=== PATIENT | male | born 1950 | race Caucasian/White ===

== ENCOUNTER 2019-11-11 13:56 | Inpatient (IN) | payer MEDICARE, OTHER ==
[~2019-11-11] VITALS: Ht 170.2 cm; Wt 71.7 kg
--- NOTE | 2019-11-11 14:09 | NUR ---
JACIEL CHENG FROM [facility] FOR INCREASING CONFUSION. HERE FOR PSYCH EVAL PRIOR TO PSYCH ADMIT. TO ER BED 11, HOOKED TO BP CUFF AND POX, VSS, CHANGED TO HOSP GOWN, WARM BLANKET PROVIDED, PATIENT AAO x 1, BREATHING EVEN AND UNLABORED, DR DUBON AT BEDSIDE
[2019-11-11] MEDS ORDERED: VALP250S4 PO (14:54)
[2019-11-11] MEDS ORDERED: VALP250S3 PO (14:54)
[2019-11-11] MEDS ORDERED: ATOR20TA PO (14:54)
[2019-11-11] MEDS ORDERED: MIRT15TA PO (14:54)
[2019-11-11] MEDS ORDERED: TEMA15CA PO (14:54)
[2019-11-11] MEDS ORDERED: TRAM50TA PO (14:54)
[2019-11-11] MEDS ORDERED: ALLO100T PO (14:54)
[2019-11-11] MEDS ORDERED: QUET300T2 PO (14:54)
[2019-11-11 15:01] LABS: CARBON DIOXIDE 27 mmol/L (21-32); CHLORIDE 105 mmol/L (98-107); CREATININE 0.8 mg/dL (0.6-1.3); GLUCOSE 73 mg/dL (74-106); POTASSIUM 3.5 mmol/L (3.5-5.1); SODIUM SERUM 140 mmol/L (136-145); UREA NITROGEN, BLOOD 7 mg/dL (7-18)
--- NOTE | 2019-11-11 15:09 | NUR ---
URINE SAMPLE COLLECTED AND SENT TO LAB
[2019-11-11 15:13] LABS: BASOPHILS % (AUTO) 0.4 % (0.0-2.0); EOSINOPHILS % (AUTO) 3.1 % (0.0-6.0); HEMATOCRIT 39 % (39-51); HEMOGLOBIN 12.8 g/dL (13.5-17.5); LYMPHOCYTES % (AUTO) 39.9 % (20.0-44.0); MEAN CORPUSCULAR HGB CONC 33 g/dl (31.0-36.0); MEAN CORPUSCULAR VOLUME 95 fL (80-96); MONOCYTES # (AUTO) 0.5 /CMM (0.1-1.30); MONOCYTES % (AUTO) 10.3 % (2.0-12.0); NEUTROPHILS # (AUTO) 2.4 /CMM (1.8-8.9); NEUTROPHILS % (AUTO) 46.3 % (43.0-81.0); PLATELET COUNT (AUTO) 122 /CMM (150-450); RED BLOOD CELL COUNT(AUTO) 4.07 MIL/uL (4.5-6.0); WHITE BLOOD COUNT (AUTO) 5.1 K/uL (4.3-11.0)
[2019-11-11 15:15] LABS: ALANINE AMINOTRANSFERASE 10 U/L (12-78); ALBUMIN 2.6 g/dL (3.4-5.0); ALCOHOL, BLOOD < 3 mg/dL (0-0); ALKALINE PHOSPHATASE 68 U/L (46-116); ASPARTATE AMINOTRANSFERASE 21 U/L (15-37); BILIRUBIN,DIRECT 0.1 mg/dL (0.0-0.2); BILIRUBIN,TOTAL 0.3 mg/dL (0.2-1.0); TOTAL PROTEIN, SERUM 7.1 g/dL (6.4-8.2)
[2019-11-11 15:18] LABS: ACETAMINOPHEN < 2 ug/ml (10-30); SALICYLATE < 2.8 mg/dL (2.8-20.0)
--- NOTE | 2019-11-11 15:18 | NUR ---
WEST VIRUS SWAB DONE AND SENT TO LAB
[2019-11-11 15:41] LABS: APPEARANCE,URINE HAZY (CLEAR); BILIRUBIN,URINE SMALL (NEGATIVE); BLOOD, URINE Trace-intact Ery/uL (NEGATIVE); COLOR,URINE Yellow (YELLOW); KETONES,URINE Negative (NEGATIVE); LEUKOCYTE ESTERASE ,URINE Negative (NEGATIVE); NITRITE, URINE Negative (NEGATIVE); PROTEIN,URINE Negative (NEGATIVE); UGLUCOSE Negative (NEGATIVE)
--- NOTE | 2019-11-11 15:58 | NUR ---
CALLED ART [phone]
[2019-11-11 16:03] LABS: BACTERIA,URINE Few /HPF (None Seen); CALCIUM OXALATE CRYSTALS,UR Few /HPF (None Seen); SQUAMOUS EPITHELIAL CELL,UR Few /HPF (None Seen); WBC,URINE 0-2 /HPF (0-3)
--- NOTE | 2019-11-11 16:15 | NUR ---
COVID RESULT: NEGATIVE
--- NOTE | 2019-11-11 17:40 | NUR ---
[facility] WANTS DR NANCE CALLED IF HE WANTS COVID PCR TEST DONE INSPITE OF A NEGATIVE RAPID COVID TODAY SINCE HE TESTED "POSITIVE 2 1/2 MONTHS AGO".
--- NOTE | 2019-11-11 17:43 | NUR ---
GOT BED 216
--- NOTE | 2019-11-11 17:44 | NUR ---
DR NANCE CALLED AND SAID THAT HE DOES NOT NEED THE COVID PCR SINCE HE IS ALREADY NEGATIVE WITH THE TEST DONE TODAY.
--- NOTE | 2019-11-11 17:51 | NUR ---
REPORT GIVEN TO ERIC JULES OF GPS
--- NOTE | 2019-11-11 18:15 | NUR ---
GPS/RN-NOTES RECEIVED 69 Y.O MALE PATIENT FROM [facility] ER.PATIENT ON 5150 HOLD FOR GD ADULT. PATIENT AWAKE,ALERT X1 WITH CONFUSION. PATIENT WAS CONTRABAND.CHARGE NURSE MADE DR. JIMENES OF THE ADMISSION. WILL ENDORSE TO INCOMING NURSE FOR ADMISSION PROCESS AND CONTINUITY OF CARE.
[2019-11-11] MEDS ORDERED: MAG HYDROX/AL HYDROX/SIMETH 30 ML UDC PO PRN (18:30)
[2019-11-11] MEDS ORDERED: LORAZEPAM 0.5 MG TABLET PO PRN (18:30)
[2019-11-11] MEDS ORDERED: MAGNESIUM HYDROXIDE 30 ML UDC PO PRN (18:30)
[2019-11-11] MEDS ORDERED: TEMAZEPAM 7.5 MG CAPSULE PO PRN (18:30)
[2019-11-11] MEDS ORDERED: BLOOD SUGAR DIAGNOSTIC 1 EACH STRIP IN ONE (18:30)
--- NOTE | 2019-11-11 19:30 | NUR ---
GPS HEADING MAKER NOTE RECEIVED PT FROM ER COMING FROM SNF. PATIENT ARRIVED ON THE UNIT AT 1700 VIA GURNEY. PATIENT ADMITTED ON A 5150 FOR GD. PER REPORT FACILITY STATED PT WAS FOUND BEING DISRUPTIVE, HAD INCREASED CONFUSION AND INABILITY TO CARE FOR HIMSELF. PT HAS MEDICAL HISTORY OF OSTEOARTHRITIS, ANEMIA, THROMBOSIS R. FEMORAL, MAJOR DEPRESSIVE, ANXIETY AND BIPOLAR. PER HOLD PATIENT BECAME SLIGHTLY AGITATED AND REFUSED TO SIGN PAPERWORK. PATIENT WAS ADVISED OF HIS HOLD. PATIENT STATED "I DON'T KNOW WHY I AM HERE, I SHOULD NOT BE HERE" ONCE REDIRECTED PT BECAME CALM AND COOPERATIVE. PT IS A/O X2-3, WITH EPISODES OF CONFUSION, BLUNT AND FLAT AFFECT, GUARDED AND QUIET. DENIES AUDITORY/VISUAL HALLUCINATION AT THIS TIME, DENIES SI/HI. PT IS IMMOBILE, NEEDS MAXIMUM ASSISTANCE AND HAS SLIGHT MUSCLE RIGIDITY. PATIENT ALLOWED US TO TAKE PICTURES AND COMPLETE SKIN ASSESSMENT. PT HAS PITTING EDEMA AND +4 BILATERALLY IN ANKLES, SLIGHT FUNGUS ON TOE, ABRASION ON LOWER LEG, REDDENED SACRAL AREA AND DRIED SCAB ON LEFT ARM, PICTURES WERE TAKEN AND PUT IN CHART, WOUND CONSULT INITIATED. PATIENT DENIES PAIN AND NO ACUTE DISTRESS IS NOTED. MRSA COMPLETE, VITAL SIGNS WNL. PT ORIENTED TO ROOM AND FLOOR, ALL QUESTIONS ANSWERED. PATIENT BED IS LOCKED AND IN LOWEST POSITION, SIDE RAILS ARE UP X2 FOR SAFETY, TS RIGHT BOOKLET WAS GIVEN WILL CONTINUE TO MONITOR Q15 MIN FOR SAFETY AND BEHAVIOR.
[2019-11-11 20:54] VITALS: BP 127/71
[2019-11-11 21:22] LABS: CHOLESTEROL 119 mg/dL (<200); HDL CHOLESTEROL 41 mg/dL (40-60); TRIGLYCERIDES 66 mg/dL (30-150)
[2019-11-11 21:23] LABS: LDL 63 mg/dL (0-99)
[2019-11-11] MEDS: ATORVASTATIN 10 MG TABLET PO SCH (21:24)
[2019-11-11 21:53] VITALS: BP 127/71
[2019-11-11] MEDS ORDERED: VALPROIC ACID 250 MG/5 ML UDC PO SCH (22:00)
[2019-11-12 08:00] VITALS: BP 140/90
[2019-11-12 08:09] LABS: ALBUMIN 2.6 g/dL (3.4-5.0); BILIRUBIN,TOTAL 0.4 mg/dL (0.2-1.0); CALCIUM, SERUM 9.3 mg/dL (8.5-10.1); CREATININE 0.7 mg/dL (0.6-1.3); POTASSIUM 4.9 mmol/L (3.5-5.1); TOTAL PROTEIN, SERUM 6.7 g/dL (6.4-8.2)
[2019-11-12] MEDS: ALLOPURINOL 100 MG TABLET PO SCH (08:30)
[2019-11-12] MEDS: TRAMADOL HCL 50 MG TABLET PO SCH ×2 (08:31→16:21)
[2019-11-12] MEDS: NICOTINE PATCH (21MG) 21 MG PATCH.TD24 TD SCH (08:31)
[2019-11-12] MEDS ORDERED: VALPROIC ACID 250 MG/5 ML UDC PO SCH (09:00)
--- NOTE | 2019-11-12 09:44 | NUR ---
Social Work Initial Discharge Plan: Patient currently resides at [facility] [address] [place] [address]; ([phone]). Per patient's daughter EDWIN Soler ([phone]) stated that she would want her father back to [facility]. Per daughter, she stated that [facility] has a Memory Care and if they have bed available there then she would want her father to transition there. This remote mortgage underwriter spoke with Neo Miller ([phone]) who stated that patient is welcomed back upon discharge. family service worker will work with the MD, treatment team, and family to help coordinate proper discharge for patient.
--- NOTE | 2019-11-12 09:44 | NUR ---
Social Work Family Contact: ticket worker contacted patient's daughter Karlene ([phone]) to gather collateral. Per Karlene, she stated that she is the DPOA of patient and will send this sheet writer documentations. Per Karlene, she expressed that patient has Parkinson and high ammonia levels. This sheet writer discussed pt's discharge plan and treatment plan.
--- NOTE | 2019-11-12 12:30 | NUR ---
WOUND CARE CONSULT: PT PRESENTS WITH SACRAL DIMPLE AND NOTED TO BE INCONTINENT OF URINE. RECOMMENDATIONS MADE FOR SKIN PROTECTION. DISCUSSED WITH NURSING STAFF. PT STATES IS BEDBOUND. WILL SEE PRN. M D IN AGREEMENT WITH PLAN OF CARE.
[2019-11-12] MEDS: QUETIAPINE FUMARATE 100 MG TABLET PO SCH ×2 (12:46→16:21)
[2019-11-12] MEDS: DIVALPROEX SODIUM 250 MG TABLET.DR PO SCH ×2 (12:46→16:22)
--- NOTE | 2019-11-12 15:26 | NUR ---
Group Note: grain mill worker invited pt to participate in group. Pt refused and wanted to stay in his room.
[2019-11-12 16:00] VITALS: BP 106/77
[2019-11-12] MEDS: Z GUARD REMEDY 2 OZ OINT TP SCH (16:21)
[2019-11-12 19:50] VITALS: BP 151/80
[2019-11-12 19:57] VITALS: BP 151/80
[2019-11-12] MEDS: ATORVASTATIN 10 MG TABLET PO SCH (21:14)
[2019-11-12] MEDS: MIRTAZAPINE 15 MG TABLET PO SCH (21:14)
--- NOTE | 2019-11-12 21:20 | NUR ---
GPS RN NOTE INFORMED THE PATIENT THAT HE NEEDS TO BE TURNED & REPOSITIONED AT THIS TIME BUT PATIENT REFUSED TO BE TURNED, STATED," I WAS TURNED RIGHT AFTER DINNER & GOT CHANGED TOO, I DO NOT WANT TO TURN OR GET CHANGED NOW." DESPITE OF RISKS & BENEFITS EXPLANATIONS, PT. CONTINUED TO REFUSE TO TURN/REPOSITION & GET HIS DIAPER CHANGED. WILL TRY AGAIN LATER.
[2019-11-12] MEDS: ACETAMINOPHEN 325 MG TABLET PO PRN (21:26)
--- NOTE | 2019-11-12 21:26 | NUR ---
PRN TYLENOL GIVEN PATIENT C/O LEFT FOOT & RIGHT LEG PAIN 06/28 & REQUESTED TO TAKE PAIN MEDICINE, PRN TYLENOL 650 MG PO GIVEN. WILL MONITOR CLOSELY FOR ANY CHANGES.
--- NOTE | 2019-11-13 00:15 | NUR ---
GPS RN NOTE PATIENT WAS CHANGED INTO NEW DIAPER, SKIN CREAM APPLIED. TURNED & REPOSITIONED PER PROTOCOL. WILL CONTINUE TO MONITOR.
[2019-11-13] MEDS: Z GUARD REMEDY 2 OZ OINT TP PRN ×2 (02:56→23:44)
[2019-11-13 08:00] VITALS: BP 104/76
[2019-11-13] MEDS: NICOTINE PATCH (21MG) 21 MG PATCH.TD24 TD SCH (08:52)
[2019-11-13] MEDS: TRAMADOL HCL 50 MG TABLET PO SCH ×2 (08:54→17:23)
[2019-11-13] MEDS: DIVALPROEX SODIUM 250 MG TABLET.DR PO SCH ×3 (08:55→13:00)
[2019-11-13] MEDS: QUETIAPINE FUMARATE 100 MG TABLET PO SCH ×3 (08:55→17:23)
[2019-11-13] MEDS: ALLOPURINOL 100 MG TABLET PO SCH (08:55)
[2019-11-13] MEDS: Z GUARD REMEDY 2 OZ OINT TP SCH (09:05)
[2019-11-13] MEDS: ACETAMINOPHEN 325 MG TABLET PO PRN (12:48)
[2019-11-13 16:00] VITALS: BP 98/65
[2019-11-13] MEDS: DIVALPROEX SODIUM 500 MG TABLET.DR PO SCH (17:23)
--- NOTE | 2019-11-13 19:30 | NUR ---
GPS RN OPENING NOTE RECEIVED PATIENT RESTING IN BED RESTING COMFORTABLY. AWAKE, A & O X2-3, CONFUSED & FORGETFUL AT TIMES. CALM BUT DEPRESSED, GUARDED, QUIET, FLAT AFFECT, NO ACUTE DISTRESS NOTED AT THIS TIME. COOPERATIVE WITH CARE, NEEDS 1-2 PERSON ASSISTANCE WITH ALL ADL'S. DENIES SI/HI/AVH AT THIS TIME. INCONTINENT, NON AMBULATORY, SAFETY PRECAUTIONS IMPLEMENTED. BED IN LOW LOCKED POSITION. BED ALARM ON. WILL CONTINUE TO MONITOR Q 15 MIN. FOR SAFETY, MOOD AND BEHAVIOR.
[2019-11-13 20:00] VITALS: BP 119/69
[2019-11-13 20:31] VITALS: BP 119/69
[2019-11-13] MEDS ORDERED: ATORVASTATIN 10 MG TABLET ONE (21:50)
[2019-11-13] MEDS: MIRTAZAPINE 15 MG TABLET PO SCH (21:51)
[2019-11-13] MEDS: ATORVASTATIN 10 MG TABLET PO SCH (21:52)
[2019-11-14 08:00] VITALS: BP 118/69
[2019-11-14] MEDS: DIVALPROEX SODIUM 250 MG TABLET.DR PO SCH ×2 (08:53→13:02)
[2019-11-14] MEDS: QUETIAPINE FUMARATE 100 MG TABLET PO SCH ×4 (09:23→21:25)
[2019-11-14] MEDS: ALLOPURINOL 100 MG TABLET PO SCH (09:23)
[2019-11-14] MEDS: NICOTINE PATCH (21MG) 21 MG PATCH.TD24 TD SCH (09:23)
[2019-11-14] MEDS: TRAMADOL HCL 50 MG TABLET PO SCH ×2 (09:24→17:23)
[2019-11-14] MEDS: Z GUARD REMEDY 2 OZ OINT TP SCH (09:40)
--- NOTE | 2019-11-14 12:00 | NUR ---
RN NOTE: DR. TEAGUE NOTIFIED OF PT BEING NON-AMBULATORY WITH H/O DVT. NO NEW ORDERS
[2019-11-14 16:00] VITALS: BP 114/56
[2019-11-14] MEDS: DIVALPROEX SODIUM 500 MG TABLET.DR PO SCH (17:23)
[2019-11-14 20:00] VITALS: BP 103/73
[2019-11-14 20:12] VITALS: BP 103/73
--- NOTE | 2019-11-14 21:30 | NUR ---
REFUSED SKIN ASSESSMENT PATIENT ALLOWED TO ASSESS HIS UPPER/LOWER EXTREMITIES, PHOTOS TAKEN BUT REFUSED SKIN ASSESSMENT OF ABDOMEN, CHEST, BACK, SACRAL & PERINEAL AREA, WHEN EXPLAINED & ENCOURAGED, PATIENT GOT AGITATED & ANXIOUS, ASKED THE NURSE TO LEAVE HIM ALONE. WILL TRY AGAIN WHEN PATIENT AGREES.
[2019-11-14] MEDS: ATORVASTATIN 10 MG TABLET PO SCH (22:04)
[2019-11-15] MEDS: Z GUARD REMEDY 2 OZ OINT TP PRN (03:51)
--- NOTE | 2019-11-15 06:20 | NUR ---
GPS RN NOTE PATIENT REFUSED AM LABS, STATED," I WANT TO SEE THE DOCTOR FIRST." DESPITE OF EXPLANATIONS, PT. CONTINUED TO REFUSE.
[2019-11-15 08:00] VITALS: BP 141/89
[2019-11-15] MEDS: NICOTINE PATCH (21MG) 21 MG PATCH.TD24 TD SCH (08:20)
[2019-11-15] MEDS: TRAMADOL HCL 50 MG TABLET PO SCH ×2 (08:20→17:20)
[2019-11-15] MEDS: QUETIAPINE FUMARATE 100 MG TABLET PO SCH ×4 (08:21→21:48)
[2019-11-15] MEDS: DIVALPROEX SODIUM 250 MG TABLET.DR PO SCH ×2 (08:21→12:47)
[2019-11-15] MEDS: ALLOPURINOL 100 MG TABLET PO SCH (08:21)
[2019-11-15] MEDS: Z GUARD REMEDY 2 OZ OINT TP SCH (09:04)
--- NOTE | 2019-11-15 11:14 | NUR ---
RN NOTE: ANXIETY PT C/O INCREASING ANXIETY AFTER PT THERAPY. MEDICATED WITH ATIVAN 0.5 MG PO PRN
--- NOTE | 2019-11-15 13:36 | NUR ---
Social Work Substance Abuse Intervention: Patient was provided with a brief substance abuse intervention and referred to the following substance abuse programs: [facility] Substance Abuse Self-helpline ([phone]); [facility] [address] [place] [address] ([phone]); [facility] [address] [place] [address] ([phone]); [facility] ([phone]); [facility] ([phone]); [facility] ([phone]); [facility] ([phone]).
[2019-11-15 15:04] LABS: BASOPHILS % (AUTO) 0.6 % (0.0-2.0); EOSINOPHILS % (AUTO) 2.3 % (0.0-6.0); HEMATOCRIT 40 % (39-51); LYMPHOCYTES # (AUTO) 2.1 /CMM (0.8-4.8); LYMPHOCYTES % (AUTO) 35.2 % (20.0-44.0); MEAN CORPUSCULAR HGB CONC 33 g/dl (31.0-36.0); MEAN CORPUSCULAR VOLUME 96 fL (80-96); MONOCYTES # (AUTO) 0.8 /CMM (0.1-1.30); MONOCYTES % (AUTO) 12.5 % (2.0-12.0); NEUTROPHILS % (AUTO) 49.4 % (43.0-81.0); PLATELET COUNT (AUTO) 147 /CMM (150-450); RED BLOOD CELL COUNT(AUTO) 4.13 MIL/uL (4.5-6.0); WHITE BLOOD COUNT (AUTO) 6.1 K/uL (4.3-11.0)
[2019-11-15 15:18] LABS: ALBUMIN 2.3 g/dL (3.4-5.0); BILIRUBIN,TOTAL 0.3 mg/dL (0.2-1.0); CALCIUM, SERUM 8.8 mg/dL (8.5-10.1); CREATININE 0.9 mg/dL (0.6-1.3); POTASSIUM 4.1 mmol/L (3.5-5.1); TOTAL PROTEIN, SERUM 6.6 g/dL (6.4-8.2)
[2019-11-15 16:00] VITALS: BP 106/81
[2019-11-15] MEDS: DIVALPROEX SODIUM 500 MG TABLET.DR PO SCH (17:19)
[2019-11-15 20:17] VITALS: BP 128/61
[2019-11-15] MEDS: ATORVASTATIN 10 MG TABLET PO SCH (21:48)
[2019-11-16] MEDS: ACETAMINOPHEN 325 MG TABLET PO PRN (06:06)
--- NOTE | 2019-11-16 06:09 | NUR ---
GPS RN NOTES: PAIN PT C/O OF LEG PAIN. OFFERED TYLENOL 650 MG PO PRN ORDERED. PT AGREED AND TOLERATED MEDICATION WELL. CONTINUE TO MONITOR.
[2019-11-16 07:46] LABS: BASOPHILS % (AUTO) 0.4 % (0.0-2.0); EOSINOPHILS % (AUTO) 2.6 % (0.0-6.0); HEMATOCRIT 40 % (39-51); HEMOGLOBIN 13.3 g/dL (13.5-17.5); LYMPHOCYTES # (AUTO) 1.9 /CMM (0.8-4.8); LYMPHOCYTES % (AUTO) 36.4 % (20.0-44.0); MEAN CORPUSCULAR HGB CONC 33 g/dl (31.0-36.0); MEAN CORPUSCULAR VOLUME 95 fL (80-96); MONOCYTES # (AUTO) 0.6 /CMM (0.1-1.30); MONOCYTES % (AUTO) 12.3 % (2.0-12.0); NEUTROPHILS # (AUTO) 2.5 /CMM (1.8-8.9); NEUTROPHILS % (AUTO) 48.3 % (43.0-81.0); PLATELET COUNT (AUTO) 175 /CMM (150-450); RED BLOOD CELL COUNT(AUTO) 4.27 MIL/uL (4.5-6.0); WHITE BLOOD COUNT (AUTO) 5.1 K/uL (4.3-11.0)
[2019-11-16 07:48] LABS: ALBUMIN 2.4 g/dL (3.4-5.0); BILIRUBIN,TOTAL 0.4 mg/dL (0.2-1.0); CALCIUM, SERUM 8.9 mg/dL (8.5-10.1); CREATININE 0.7 mg/dL (0.6-1.3); POTASSIUM 3.8 mmol/L (3.5-5.1); TOTAL PROTEIN, SERUM 6.9 g/dL (6.4-8.2)
[2019-11-16 08:00] VITALS: BP 97/70
[2019-11-16] MEDS: ALLOPURINOL 100 MG TABLET PO SCH (08:29)
[2019-11-16] MEDS: QUETIAPINE FUMARATE 100 MG TABLET PO SCH ×4 (08:29→21:32)
[2019-11-16] MEDS: NICOTINE PATCH (21MG) 21 MG PATCH.TD24 TD SCH (08:29)
[2019-11-16] MEDS: TRAMADOL HCL 50 MG TABLET PO SCH ×2 (08:29→17:26)
[2019-11-16] MEDS: DIVALPROEX SODIUM 250 MG TABLET.DR PO SCH ×2 (08:29→12:23)
[2019-11-16] MEDS: Z GUARD REMEDY 2 OZ OINT TP SCH (09:18)
--- NOTE | 2019-11-16 14:30 | NUR ---
RN NOTE: UNWITNESSED FALL PT FOUND BY RENO FERMIN. PT FOUND ON THE FLOOR AFTER ATTEMPTING TO GET FROM WHEELCHAIR TO THE BED UNASSISTED. PT FOUND LAYING ON RIGHT HIP. NO TRAUMA TO THE HEAD NOTED OR REPORTED. PT ASSISTED BACK TO BED. SIGHT ASSESSED, SKIN INTACT. PT DENIES PAIN AT SIGHT. PT REPORTS H/O RIGHT HIP REPAIR IN 2004. DR. JIMENES AND DR. ARORA NOTIFIED. ORDER FOR MULI-VIEW RIGHT HIP X-RAY. PT'S DAUGHTER, JOSE ROBERTO HOPSON, NOTIFIED. REPORTS H/O MULTIPLE SIMILAR EVENTS AT PREVIOUS PLACE OF TREATMENT WITHIN THE LAST 30 DAYS. VSS: 101/63, 107, 18 AND 95%. INCIDENT REPORT FILED. PT MOVED TO ROOM CLOSER TO THE NURSES STATION. CALL EDWARDS WITHIN REACH. WILL CONT TO MONITOR PT FOR SAFETY, BEHAVIOR AND PAIN. US NOTIFIED OF ORDER.
--- NOTE | 2019-11-16 15:30 | NUR ---
GROUP NOTE: Group Topic: Depression SW invited patient to group however patient was asleep at this time.
[2019-11-16 16:00] VITALS: BP 102/72
[2019-11-16] MEDS: DIVALPROEX SODIUM 500 MG TABLET.DR PO SCH (17:26)
--- NOTE | 2019-11-16 19:59 | NUR ---
rn gps notes pelvis xray resulted, No acute findings.
[2019-11-16 20:02] VITALS: BP 106/76
[2019-11-16] MEDS: ATORVASTATIN 10 MG TABLET PO SCH (21:32)
--- NOTE | 2019-11-16 21:52 | NUR ---
RN GPS NOTES WCC PLACED PATIENT COMPLAINED OF TENDERNESS TO LEFT HEEL , PICTURE TAKEN ,BOTH HEELS OFFLOADED SKIN REMAINS INTACT.
[2019-11-17] MEDS: DIVALPROEX SODIUM 250 MG TABLET.DR PO SCH ×2 (07:50→12:13)
[2019-11-17 08:00] VITALS: BP 122/92
[2019-11-17] MEDS: QUETIAPINE FUMARATE 100 MG TABLET PO SCH ×3 (08:28→16:24)
[2019-11-17] MEDS: ALLOPURINOL 100 MG TABLET PO SCH (08:28)
[2019-11-17] MEDS: Z GUARD REMEDY 2 OZ OINT TP SCH (08:28)
[2019-11-17] MEDS: NICOTINE PATCH (21MG) 21 MG PATCH.TD24 TD SCH (08:28)
[2019-11-17] MEDS: TRAMADOL HCL 50 MG TABLET PO SCH ×2 (08:28→16:24)
--- NOTE | 2019-11-17 09:00 | NUR ---
RN NOTE- PT QUIET IN BED WITHDRAWN VERY LITTLE INTERACTION SLOW TO RESPOND VERBALLY THOUGH ANSWERS APPROPRIATELY DENIES ALL AT PRESENT. NEEDS ATTENDED. MED COMPLIANT RIGHT EYE SEEMS TO HAVE INFECTION WILL DISCUSS W HAND CIGAR MAKING SUPERVISOR THIS AM.
--- NOTE | 2019-11-17 12:06 | NUR ---
WOUND CARE CONSULT: PT SEEN FOR LEFT HEEL REDNESS REPORTED BY NURSING STAFF. HEELS NOTED TO HAVE BLANCHABLE REDNESS. RECOMMENDATIONS MADE FOR SKIN PROTECTION. DISCUSSED WITH NURSING STAFF. WILL SEE PRN.
[2019-11-17] MEDS: GENTAMICIN OPTH OINT 0.3% 3.5 G TUBE RIGHTEYE SCH ×2 (13:30→16:58)
[2019-11-17 16:00] VITALS: BP 94/74
--- NOTE | 2019-11-17 16:18 | NUR ---
Group Note: SW encouraged the pt to attend group therapy on 11/17/19 on the topic of discharge planning. Pt did not want to attend group as he was sleeping so the SW informed him that Sarah Wilkins may want him to go to a facility called [facility] first before returning to their facility.
[2019-11-17] MEDS: DIVALPROEX SODIUM 500 MG TABLET.DR PO SCH (16:24)
[2019-11-17 19:57] VITALS: BP 99/68
[2019-11-17] MEDS: Z GUARD REMEDY 2 OZ OINT TP PRN (19:57)
[2019-11-17 20:00] VITALS: BP 99/68
[2019-11-17] MEDS: ACETAMINOPHEN 325 MG TABLET PO PRN (20:30)
--- NOTE | 2019-11-17 20:31 | NUR ---
GPS RN NOTE: PAIN PATIENT C/O LEFT FOOT & RIGHT LEG PAIN 06/28 & REQUESTED TO GET PAIN MEDICINE. PRN TYLENOL 650 MG PO GIVEN ORDERED. WILL CONTINUE TO MONITOR FOR ANY CHANGES.
[2019-11-17 21:40] VITALS: BP 115/66
[2019-11-17] MEDS: ATORVASTATIN 10 MG TABLET PO SCH (21:49)
[2019-11-17] MEDS ORDERED: QUETIAPINE FUMARATE 100 MG TABLET PO SCH (22:00)
[2019-11-18] MEDS: Z GUARD REMEDY 2 OZ OINT TP PRN (06:03)
[2019-11-18] MEDS: QUETIAPINE FUMARATE 100 MG TABLET PO SCH ×4 (08:28→22:24)
[2019-11-18] MEDS: DIVALPROEX SODIUM 250 MG TABLET.DR PO SCH ×2 (08:28→12:19)
[2019-11-18] MEDS: NICOTINE PATCH (21MG) 21 MG PATCH.TD24 TD SCH (08:28)
[2019-11-18] MEDS: TRAMADOL HCL 50 MG TABLET PO SCH ×2 (08:28→16:06)
[2019-11-18] MEDS: GENTAMICIN OPTH OINT 0.3% 3.5 G TUBE RIGHTEYE SCH ×3 (08:30→16:13)
[2019-11-18] MEDS: Z GUARD REMEDY 2 OZ OINT TP SCH (08:30)
[2019-11-18] MEDS: ALLOPURINOL 100 MG TABLET PO SCH (08:33)
[2019-11-18 08:34] VITALS: BP 123/91
--- NOTE | 2019-11-18 09:52 | NUR ---
SW Coordination of Care: Spoke with Neo Admin at [facility] ([phone]) regarding patient's discharge plan. Neo stated that they would prefer patient to go to a jail facility prior to returning back to [facility] for the patient to get physically more stable. This typewriter ribbon winder then received a call from Dustin ([phone]) the health service coordinator at [facility] who stated he will be working on the patient to get admitted to a SNF and will inform this typewriter ribbon winder on the status and progress. This typewriter ribbon winder also spoke with patient's daughter, Karlene ([phone]) regarding the coordinations and she is agreeable with this plan.
--- NOTE | 2019-11-18 10:08 | NUR ---
Coordination of Care: BLAKE faxed patient's referral packet to [facility] ( and ) attention to Jennifer insurance coordinator. Awaiting review. Addendum: 11/18/19 at 1430 by BRETT LEAVITT Patient is accepted to facility upon discharge.
--- NOTE | 2019-11-18 14:30 | NUR ---
GROUP NOTE: Topic: Adapting to our environment. brush worker provided active listening, motivational interviewing, and reflected patient's thoughts and feelings. Patient shared about his family and the support he receives form his daughter and other children. Patient presented with a brighter affect when he spoke about how much he loves his family. Patient stated that he has a difficult time adjusting to new environments and that he smokes cigarettes which he cannot do in most places. SW empathized with the patient and provide discussed coping skills other than smoking.
[2019-11-18 16:00] VITALS: BP 99/71
[2019-11-18] MEDS: DIVALPROEX SODIUM 500 MG TABLET.DR PO SCH (16:06)
[2019-11-18 20:28] VITALS: BP 100/73
[2019-11-18] MEDS: ATORVASTATIN 10 MG TABLET PO SCH (21:31)
[2019-11-18 22:23] VITALS: BP 101/71
--- NOTE | 2019-11-19 07:09 | NUR ---
GPS RN OPENING NOTES RECEIVED PATIENT RESTING IN BED AT THIS TIME,NO SOB NOTED, NO S/S OF ANY ACUTE DISTRESS NOTED, NO C/O PAIN AT THIS TIME. PT IS COOPERATIVE AND CALM WITH CARE AND EASILY REDIRECTED. PT ABLE TO MAKE NEEDS KNOWN. ENVIRONMENTAL SAFETY CHECKS . SAFETY PRECAUTIONS IN PLACE AND MAINTAINED AT ALL TIMES, BED IN LOWEST LOCKED POSITION, SIDE RAILS UP, CALL LIGHT WITHIN REACH. WILL CONTINUE TO MONITOR Q 15 MIN, FOR SAFETY, MOOD,BEHAVIOR AND CONTINUE WITH PLAN OF CARE
[2019-11-19 08:00] VITALS: BP 127/97
[2019-11-19] MEDS: ENSURE ENLIVE CHOC 237 ML CAN PO SCH ×2 (08:48→17:25)
[2019-11-19] MEDS: DIVALPROEX SODIUM 250 MG TABLET.DR PO SCH ×2 (08:48→12:18)
[2019-11-19] MEDS: TRAMADOL HCL 50 MG TABLET PO SCH ×2 (08:56→17:24)
[2019-11-19] MEDS: ALLOPURINOL 100 MG TABLET PO SCH (08:56)
[2019-11-19] MEDS: QUETIAPINE FUMARATE 100 MG TABLET PO SCH ×4 (08:56→21:52)
[2019-11-19] MEDS: NICOTINE PATCH (21MG) 21 MG PATCH.TD24 TD SCH (08:57)
[2019-11-19] MEDS: GENTAMICIN OPTH OINT 0.3% 3.5 G TUBE RIGHTEYE SCH ×3 (08:57→17:24)
[2019-11-19] MEDS: Z GUARD REMEDY 2 OZ OINT TP SCH (08:58)
--- NOTE | 2019-11-19 15:32 | NUR ---
GROUP NOTE: Topic: Learning coping skills. medical case worker attempted to invite patient to participate in group. Patient was asleep at this time and unable to attend.
[2019-11-19 16:00] VITALS: BP 101/63
[2019-11-19] MEDS: DIVALPROEX SODIUM 500 MG TABLET.DR PO SCH (17:24)
--- NOTE | 2019-11-19 18:55 | NUR ---
GPS RN CLOSING NOTES PATIENT AWAKE IN BED AT THIS TIME. PT REMAINED STABLE THROUGHOUT SHIFT. PT KEPT CLEAN AND DRY. PT REPOSITIONED Q2HRS, PRN AND PER PROTOCOL. HEELS OFFLOADED. ALL CARE, NEEDS, MEDICATIONS AND TREATMENT ADMINISTERED ANTICIPATED PER ORDER. SAFETY PRECAUTIONS IN PLACE AND MAINTAINED AT ALL TIMES, BED IN LOWEST LOCKED POSITION, SIDE RAILS UP, CALL LIGHT WITHIN REACH. WILL ENDORSE TO MOTORS ASSEMBLER NURSE FOR GRISELDA
[2019-11-19 19:39] VITALS: BP 101/74
--- NOTE | 2019-11-19 20:10 | NUR ---
GPS RN NOTE: INDIGESTION PATIENT C/O INDIGESTION & VOMITED X 1 (SMALL AMOUNT) PRN MAALOX 30 ML GIVEN ORDERED. WILL MONITOR CLOSELY FOR ANY CHANGE OF CONDITION.
--- NOTE | 2019-11-19 21:13 | NUR ---
GPS RN NOTE ASSESSED THE PATIENT FOR NAUSEA & VOMITING, PATIENT STATED THAT HE IS FEELING BETTER NOW & REQUESTED TO GET PAIN MEDICINE FOR LEFT ANKLE PAIN. WILL GIVE PAIN MEDICINE ORDERED.
[2019-11-19 21:17] VITALS: BP 101/74
[2019-11-19] MEDS: ACETAMINOPHEN 325 MG TABLET PO PRN (21:22)
--- NOTE | 2019-11-19 21:26 | NUR ---
GPS RN NOTE: LEFT ANKLE PAIN PATIENT C/O LEFT ANKLE PAIN 06/28 & REQUESTED TO GET PAIN MEDICINE. PRN TYLENOL 650 MG PO GIVEN ORDERED. WILL MONITOR CLOSELY FOR ANY CHANGES.
[2019-11-19 21:50] VITALS: BP 105/68
[2019-11-19] MEDS: ATORVASTATIN 10 MG TABLET PO SCH (21:52)
[2019-11-20] MEDS: Z GUARD REMEDY 2 OZ OINT TP PRN (00:47)
--- NOTE | 2019-11-20 03:11 | NUR ---
GPS RN NOTE PATIENT IS SLEEPING COMFORTABLY, NO NAUSEA, VOMITING NOTED AFTER MAALOX WAS GIVEN. NO C/OF PAIN OR INDIGESTION VERBALIZED BY THE PATIENT AT THIS TIME. WILL CONTINUE TO MONITOR FOR ANY CHANGES.
[2019-11-20 08:00] VITALS: BP 100/72
[2019-11-20] MEDS: QUETIAPINE FUMARATE 100 MG TABLET PO SCH ×4 (08:32→21:49)
[2019-11-20] MEDS: TRAMADOL HCL 50 MG TABLET PO SCH ×2 (08:32→16:42)
[2019-11-20] MEDS: DIVALPROEX SODIUM 250 MG TABLET.DR PO SCH ×2 (08:32→12:56)
[2019-11-20] MEDS: NICOTINE PATCH (21MG) 21 MG PATCH.TD24 TD SCH (08:33)
[2019-11-20] MEDS: ALLOPURINOL 100 MG TABLET PO SCH (08:33)
[2019-11-20] MEDS: ENSURE ENLIVE CHOC 237 ML CAN PO SCH ×2 (08:34→16:43)
[2019-11-20] MEDS: GENTAMICIN OPTH OINT 0.3% 3.5 G TUBE RIGHTEYE SCH ×3 (08:34→16:42)
[2019-11-20] MEDS: Z GUARD REMEDY 2 OZ OINT TP SCH (08:34)
[2019-11-20 16:00] VITALS: BP 100/67
[2019-11-20] MEDS: DIVALPROEX SODIUM 500 MG TABLET.DR PO SCH (16:42)
[2019-11-20 21:07] VITALS: BP 100/64
[2019-11-20] MEDS: ATORVASTATIN 10 MG TABLET PO SCH (21:10)
--- NOTE | 2019-11-20 21:49 | NUR ---
GPS RN NOTE: HELD SCHEDULED 2200 SEROQUEL 300 MG PO DUE TO DECREASED BLOOD PRESSURE 97/71. WILL CONTINUE TO MONITOR FOR SAFETY AND BEHAVIOR
[2019-11-21 08:00] VITALS: BP 110/81
[2019-11-21] MEDS: QUETIAPINE FUMARATE 100 MG TABLET PO SCH ×4 (08:13→21:14)
[2019-11-21] MEDS: DIVALPROEX SODIUM 250 MG TABLET.DR PO SCH ×2 (08:14→12:42)
[2019-11-21] MEDS: TRAMADOL HCL 50 MG TABLET PO SCH ×2 (08:14→16:11)
[2019-11-21] MEDS: NICOTINE PATCH (21MG) 21 MG PATCH.TD24 TD SCH (08:14)
[2019-11-21] MEDS: GENTAMICIN OPTH OINT 0.3% 3.5 G TUBE RIGHTEYE SCH ×3 (08:15→16:15)
[2019-11-21] MEDS: ENSURE ENLIVE CHOC 237 ML CAN PO SCH ×2 (08:30→16:16)
[2019-11-21] MEDS: Z GUARD REMEDY 2 OZ OINT TP SCH (08:31)
[2019-11-21] MEDS: ALLOPURINOL 100 MG TABLET PO SCH (08:31)
--- NOTE | 2019-11-21 09:00 | NUR ---
RN OPENING NOTE RECEIVED PATIENT RESTING IN BED. AWAKE, A & O X2-3, CONFUSED, FORGETFUL AT TIMES. CALM, DEPRESSED, GUARDED, QUIET, COOPERATIVE, NO SOB, OR ACUTE DISTRESS NOTED AT THIS TIME. BREATHING EVEN AND UNLABORED. NO PAIN VERBALIZED AT THIS TIME. COOPERATIVE WITH CARE, NEEDS 1-2 PERSON ASSISTANCE WITH ALL ADL'S. DENIES SI/HI/AVH AT THIS TIME. INCONTINENT, NON AMBULATORY, SAFETY PRECAUTIONS IMPLEMENTED. BED IN LOW/LOCKED POSITION. BED ALARM ON. WILL CONTINUE TO MONITOR Q 15 MIN. FOR SAFETY, MOOD AND BEHAVIOR.
[2019-11-21 15:57] VITALS: BP 92/62
[2019-11-21] MEDS: DIVALPROEX SODIUM 500 MG TABLET.DR PO SCH (16:11)
[2019-11-21 20:06] VITALS: BP 104/61
[2019-11-21] MEDS: ACETAMINOPHEN 325 MG TABLET PO PRN (20:10)
--- NOTE | 2019-11-21 20:15 | NUR ---
GPS RN NOTE: PAIN PT WAS COMPLAINING OF BODY PAIN, ASKED WHAT HE WAS ABLE TO TAKE FOR THE PAIN. RATED PAIN 6/10, ADMINISTERED TYLENOL @ 2009. WILL REASSESS AND CONTINUE TO MONITOR Q15 MIN FOR SAFETY AND BEHAVIOR.
[2019-11-21] MEDS: ATORVASTATIN 10 MG TABLET PO SCH (21:14)
[2019-11-22] MEDS: ENSURE ENLIVE CHOC 237 ML CAN PO SCH ×2 (07:43→17:09)
[2019-11-22 08:00] VITALS: BP 119/77
[2019-11-22] MEDS: GENTAMICIN OPTH OINT 0.3% 3.5 G TUBE RIGHTEYE SCH ×3 (08:09→16:20)
[2019-11-22] MEDS: NICOTINE PATCH (21MG) 21 MG PATCH.TD24 TD SCH (08:09)
[2019-11-22] MEDS: ALLOPURINOL 100 MG TABLET PO SCH (08:10)
[2019-11-22] MEDS: DIVALPROEX SODIUM 250 MG TABLET.DR PO SCH ×2 (08:10→12:27)
[2019-11-22] MEDS: QUETIAPINE FUMARATE 100 MG TABLET PO SCH ×4 (08:10→21:08)
[2019-11-22] MEDS: Z GUARD REMEDY 2 OZ OINT TP SCH (08:11)
[2019-11-22] MEDS: TRAMADOL HCL 50 MG TABLET PO SCH ×2 (08:16→16:21)
--- NOTE | 2019-11-22 11:23 | NUR ---
BLAKE Coordination of Care: BLAKE received a call from Ambar from [facility] who stated that they coordinated for patient to go to [facility] [address] [place] [address] ([phone]) upon discharge from the hospital. This ghost writer stated that last week, Dustin from [facility] coordinated for the patient to go to [facility] [address] [place] [address] ([phone]). Ambar stated that she will discuss with Dustin and call this ghost writer with a final decision. This ghost writer also informed Neo healthcare administrator at [facility] ([phone]) of the discharge coordination and he stated that Dustin will call this ghost writer back with a set plan. Addendum: 11/22/19 at 1135 by BRETT LEAVITT Dustin called this ghost writer and confirmed that the patient will be going to [address] [address] ([phone]) upon discharge.
--- NOTE | 2019-11-22 11:55 | NUR ---
BLAKE Family Contact: SW spoke with patients daughterKarlene ([phone]) and informed of the patient's acceptance at [address] [address] ([phone]).
[2019-11-22] MEDS: ACETAMINOPHEN 325 MG TABLET PO PRN (12:27)
--- NOTE | 2019-11-22 15:38 | NUR ---
Group Note: SW invited patient to participate in group therapy to discuss the topic of Problem Solving. Patient was asleep at this time and unable to participate in group.
[2019-11-22 16:00] VITALS: BP 113/58
[2019-11-22] MEDS: DIVALPROEX SODIUM 500 MG TABLET.DR PO SCH (16:20)
[2019-11-22 20:04] VITALS: BP 99/65
[2019-11-22] MEDS: ATORVASTATIN 10 MG TABLET PO SCH (21:08)
[2019-11-23] MEDS: ENSURE ENLIVE CHOC 237 ML CAN PO SCH ×2 (07:50→16:30)
[2019-11-23 08:00] VITALS: BP 113/87
[2019-11-23] MEDS: Z GUARD REMEDY 2 OZ OINT TP SCH (08:05)
[2019-11-23] MEDS: ALLOPURINOL 100 MG TABLET PO SCH (08:06)
[2019-11-23] MEDS: DIVALPROEX SODIUM 250 MG TABLET.DR PO SCH ×2 (08:06→12:38)
[2019-11-23] MEDS: GENTAMICIN OPTH OINT 0.3% 3.5 G TUBE RIGHTEYE SCH ×3 (08:06→16:29)
[2019-11-23] MEDS: TRAMADOL HCL 50 MG TABLET PO SCH ×2 (08:06→16:30)
[2019-11-23] MEDS: QUETIAPINE FUMARATE 100 MG TABLET PO SCH ×4 (08:07→21:08)
[2019-11-23] MEDS: NICOTINE PATCH (21MG) 21 MG PATCH.TD24 TD SCH (08:07)
--- NOTE | 2019-11-23 08:37 | NUR ---
WOUND CARE CONSULT PATIENT SEEN AND LEFT HEEL EVALUATED. LEFT HEEL NOTED TO HAVE BLANCHABLE REDNESS, THERE IS NO PURPLE AREA NOTED AND NO DTI IS NOTED AT THIS TIME. DISCUSSED WITH STAFF NURSE AT BEDSIDE. RECOMMENDATIONS MADE TO CONTINUE TO FLOAT BILATERAL HEELS. WILL SEE PRN.
--- NOTE | 2019-11-23 09:00 | NUR ---
gps radiator fitter: notes am care rendered by staff, encourage to be turned on the side, but pt refuses, prefers to lay supine.
[2019-11-23] MEDS: ACETAMINOPHEN 325 MG TABLET PO PRN (10:49)
--- NOTE | 2019-11-23 11:05 | NUR ---
gps financial management analyst: notes covid antigen collected and sent to lab. Addendum: 11/23/19 at 1213 by WILBER MOLINAN pt still refuses to be turned from side to side despite encouragement
--- NOTE | 2019-11-23 11:50 | NUR ---
gps alternative financing specialist: fabian padilla (lab) called and relayed covid negative result.
--- NOTE | 2019-11-23 13:58 | NUR ---
BLAKE Family Contact: BLAKE spoke with patients daughter, Karlene ([phone]) who requested this script writer to fax patient's referral packet to the following facilities for review: [facility] attention to Anne (ph: [phone] fax: [phone]) [facility] attention to Dilcia (ph: [phone] fax: [phone]) Addendum: 11/23/19 at 1607 by BRETT LEAVITT Received a call back from Aure from [facility] who stated that they are not able to accept the patient to their facility. Addendum: 11/23/19 at 1623 by BRETT LEAVITT BLAKE received a call back from Anne from [facility] stating they cannot accept the patient at this time.
--- NOTE | 2019-11-23 15:53 | NUR ---
Group Note: SW encouraged pt to attend group therapy on 11/23/19 on the topic of discharge planning. Pt refused to attend the group as he was asleep. Pt also refused to participate in an individual therapy session.
[2019-11-23 16:00] VITALS: BP 96/66
[2019-11-23] MEDS: DIVALPROEX SODIUM 500 MG TABLET.DR PO SCH (16:30)
[2019-11-23 20:16] VITALS: BP 96/64
[2019-11-23] MEDS: ATORVASTATIN 10 MG TABLET PO SCH (21:08)
[2019-11-24 08:00] VITALS: BP 115/70
[2019-11-24] MEDS: ALLOPURINOL 100 MG TABLET PO SCH (08:35)
[2019-11-24] MEDS: ENSURE ENLIVE CHOC 237 ML CAN PO SCH (08:35)
[2019-11-24] MEDS: QUETIAPINE FUMARATE 100 MG TABLET PO SCH ×2 (08:35→12:28)
[2019-11-24] MEDS: DIVALPROEX SODIUM 250 MG TABLET.DR PO SCH ×2 (08:35→12:28)
[2019-11-24] MEDS: NICOTINE PATCH (21MG) 21 MG PATCH.TD24 TD SCH (08:36)
[2019-11-24] MEDS: TRAMADOL HCL 50 MG TABLET PO SCH (08:36)
[2019-11-24] MEDS: GENTAMICIN OPTH OINT 0.3% 3.5 G TUBE RIGHTEYE SCH ×2 (08:38→12:31)
[2019-11-24] MEDS: Z GUARD REMEDY 2 OZ OINT TP SCH (08:43)
--- NOTE | 2019-11-24 08:45 | NUR ---
Discharge Note: Patient will be discharged today [place] [address] ([phone]) via ambulance at 1pm. Spoke with [facility] health service coordinator at the facility who confirmed they are ready to accept the patient today. Patient presents with appropriate mood and congruent affect. Patient is aware and agreeable with discharge plans. Patient denies suicidal or homicidal ideation. Patient is unable to plan for self-care at this time however is willing to accept care provided for him at [facility]. Patient daughter/DPOA. Soler ([phone]) is aware and agreeable with discharge plan. Patient will be following up with psychiatrist Dr. Beltran and Spudder Dr. Del [place] [address] ([phone]). Patient was provided with a brief substance abuse intervention for smoking cessation and was referred to [place] [employer] ([phone]), [employer] ([phone]), and Nicotine Anonymous Telephone Meeting (ph: [phone]; PIN [phone]#).
[2019-11-24] MEDS: ACETAMINOPHEN 325 MG TABLET PO PRN (14:09)
--- NOTE | 2019-11-24 14:14 | NUR ---
GPS/RN-NOTES PATIENT C/O LEFT KNEE PAIN TYLENOL 650MG P.O GIVEN PRN ORDER. WILL CONT. MONITORING FOR EFFECTIVENESS.
--- NOTE | 2019-11-24 15:15 | NUR ---
GPS/RN-NOTES PATIENT LAYING IN BED CALM STATED" TYLENOL HELPS MY PAIN". NO ACUTE DISTRESS NOTED.
--- NOTE | 2019-11-24 16:10 | NUR ---
GPS/RN-NOTES PATIENT HAD A DISCHARGE ORDER FROM DR. JIMENES (PSYCHIATRIST) AND DR. ARORA ( RESPIRATORY CARE FACULTY) ALSO MADE AWARE WITH ORDERS. PATIENT WAS DISCHARGE TO [facility] . PATIENT DID NOT VERBALIZED SI/HI,DENIES VISUAL AUDITORY HALLUCINATIONS UPON DISCHARGE.REPORT WAS GIVEN TO RHIANNA (GASKET NOTCHER) . PATIENT'S DTR/DPOA JOSE ROBERTO AWARE OF PATIENT DISCHARGE. PATIENT WAS TRANSFORMER STOCK CLERK BY AMBULANCE VIA GURNEY WITH TWO STAFF ASSIST.PATIENT LEFT THE UNIT IN STABLE CONDITION ALERT ORIENTED X3 WITH ALL BELONGINGS INCLUDING ONE CELLPHONE WITH SENIOR WIND ENERGY CONSULTANT IT WAS ENDORSED AND GIVEN TO THE AMBULANCE STAFF INCLUDING DISCHARGE PAPERS.
== END 2019-11-24 16:10 | DRG 885 ==
LOC: ER 13:56 → GPS 17:55
PROVIDERS: ADMIT Psychiatry & Neurology Psychosomatic Medicine
DX: F25.0 Schizoaffective disorder, bipolar type (principal); F32.9 Major depressive disorder, single episode, unspecified; F29 Unspecified psychosis not due to a substance or known physiological condition; E88.09 Other disorders of plasma-protein metabolism, not elsewhere classified; M19.90 Unspecified osteoarthritis, unspecified site; Z86.73 Personal history of transient ischemic attack (TIA), and cerebral infarction without residual deficits; D64.9 Anemia, unspecified; G89.4 Chronic pain syndrome; F41.9 Anxiety disorder, unspecified
CPT/HCPCS: 36415; 70450-TC; 72170-TC; 80048-TC; 80053-TC; 80061-TC; 80076-TC; 80164-TC; 80305; 81000-TC; 82140-TC; 82962-TC; 84443-TC; 85025-TC; 87081-TC; 97110-TC; 97116-TC; 97530-TC; G0480

== ENCOUNTER 2021-03-27 10:45 | Outpatient (CLI) | payer MEDICARE, OTHER ==
[~2021-03-27 10:45] MED LIST: ALLO100T PO; ATOR20TA PO; MIRT-121 PO; QUET300T2 PO; TEMA15CA PO; TRAM50TA PO; VALP250S3 PO; VALP250S4 PO
== END 2021-03-27 23:59 | disposition home or self-care (01) ==
LOC: MSC 10:45
PROVIDERS: ATTEND Anesthesiology
DX: G89.4 Chronic pain syndrome (principal); M79.604 Pain in right leg; M54.50 Low back pain, unspecified; M40.299 Other kyphosis, site unspecified; M62.830 Muscle spasm of back; Z79.891 Long term (current) use of opiate analgesic; Z79.1 Long term (current) use of non-steroidal anti-inflammatories (NSAID)

== ENCOUNTER 2021-05-22 10:30 | Outpatient (CLI) | payer MEDICARE, OTHER | END 2021-05-22 23:59 | disposition home or self-care (01) | LOC: MSC 10:30 | PROVIDERS: ATTEND Anesthesiology | DX: G89.4 Chronic pain syndrome (principal); M79.606 Pain in leg, unspecified; M54.50 Low back pain, unspecified; M40.299 Other kyphosis, site unspecified; M62.830 Muscle spasm of back; Z79.1 Long term (current) use of non-steroidal anti-inflammatories (NSAID); Z79.891 Long term (current) use of opiate analgesic ==

== ENCOUNTER → 2021-06-19 | Outpatient (CLI) | payer MEDICARE, OTHER | LOC: MSC 10:50 | PROVIDERS: ATTEND Anesthesiology | DX: M54.50 Low back pain, unspecified (principal); M40.299 Other kyphosis, site unspecified; M62.830 Muscle spasm of back; G89.4 Chronic pain syndrome; M79.606 Pain in leg, unspecified; Z79.891 Long term (current) use of opiate analgesic; Z79.1 Long term (current) use of non-steroidal anti-inflammatories (NSAID); Z79.899 Other long term (current) drug therapy ==

== ENCOUNTER → 2021-08-28 | Outpatient (CLI) | payer MEDICARE, OTHER | END | disposition home or self-care (01) | LOC: MSC 09:45 | PROVIDERS: ATTEND Anesthesiology | DX: M54.50 Low back pain, unspecified (principal); M40.299 Other kyphosis, site unspecified; M62.830 Muscle spasm of back; G89.4 Chronic pain syndrome; M79.606 Pain in leg, unspecified; Z79.891 Long term (current) use of opiate analgesic; Z79.1 Long term (current) use of non-steroidal anti-inflammatories (NSAID) ==

== ENCOUNTER 2021-12-18 11:15 | Outpatient (CLI) | payer MEDICARE, OTHER | END 2021-12-18 23:59 | disposition home or self-care (01) | LOC: MSC 11:15 | PROVIDERS: ATTEND Anesthesiology | DX: G89.4 Chronic pain syndrome (principal); M54.50 Low back pain, unspecified; M40.299 Other kyphosis, site unspecified; M62.830 Muscle spasm of back; M79.606 Pain in leg, unspecified; Z79.891 Long term (current) use of opiate analgesic; Z79.1 Long term (current) use of non-steroidal anti-inflammatories (NSAID); Z79.899 Other long term (current) drug therapy ==

== ENCOUNTER 2022-07-30 10:01 | Outpatient (CLI) | payer MEDICARE, OTHER | END 2022-07-30 23:59 | disposition home or self-care (01) | LOC: MSC 10:01 | PROVIDERS: ATTEND Anesthesiology | DX: G89.4 Chronic pain syndrome (principal); M54.50 Low back pain, unspecified; M40.299 Other kyphosis, site unspecified; M62.830 Muscle spasm of back; M79.606 Pain in leg, unspecified; Z79.891 Long term (current) use of opiate analgesic; Z79.1 Long term (current) use of non-steroidal anti-inflammatories (NSAID); Z79.899 Other long term (current) drug therapy ==

== ENCOUNTER 2022-08-27 09:58 | Outpatient (CLI) | payer MEDICARE, OTHER | END 2022-08-27 23:59 | disposition home or self-care (01) | LOC: MSC 09:58 | PROVIDERS: ATTEND Anesthesiology | DX: G89.4 Chronic pain syndrome (principal); M54.50 Low back pain, unspecified; M40.299 Other kyphosis, site unspecified; M62.830 Muscle spasm of back; M79.606 Pain in leg, unspecified; Z79.891 Long term (current) use of opiate analgesic; Z79.1 Long term (current) use of non-steroidal anti-inflammatories (NSAID); Z79.899 Other long term (current) drug therapy ==